=== PATIENT | female | born 1995 | race Hispanic/Latino ===

== ENCOUNTER 2023-03-29 14:13 | Outpatient (CLI) | payer BC, OTHER | END 2023-03-29 14:14 | disposition home or self-care (01) | LOC: CSHULT 14:13 | PROVIDERS: ATTEND Family Medicine | DX: Z34.82 Encounter for supervision of other normal pregnancy, second trimester (principal) | CPT/HCPCS: 76805 ==

== ENCOUNTER 2023-05-06 16:56 | Day surgery (SDC) | payer BC, OTHER ==
[2023-05-06 17:31] VITALS: BMI 28.1
== END 2023-05-06 18:45 | disposition home or self-care (01) ==
LOC: CSHLD/OP 16:56
PROVIDERS: ATTEND Family Medicine
DX: O47.03 False labor before 37 completed weeks of gestation, third trimester (principal); Z3A.30 30 weeks gestation of pregnancy
CPT/HCPCS: 99282

== ENCOUNTER 2025-01-06 12:31 | Emergency (ER) | payer OTHER | END 2025-01-06 14:01 | disposition home or self-care (01) | LOC: CSHERS 12:31 | DX: J06.9 Acute upper respiratory infection, unspecified (principal); B97.89 Other viral agents as the cause of diseases classified elsewhere | CPT/HCPCS: 87081; 87428; 87430; 99283 ==